=== PATIENT | female | born 1970 | race Caucasian/White ===

== ENCOUNTER 2024-03-31 10:19 | Outpatient (RCR) | payer OTHER, SELFPAY | END 2024-03-31 23:59 | disposition home or self-care (01) | LOC: RPT 10:19 | PROVIDERS: ATTENDING PHYSICIAN Orthopaedic Surgery; FAMILY PHYSICIAN Physician Assistant Medical | DX: M43.22 Fusion of spine, cervical region (principal); Z73.6 Limitation of activities due to disability; Z98.1 Arthrodesis status | CPT/HCPCS: 97110; 97161 ==

== ENCOUNTER → 2024-06-17 07:48 | Outpatient (REF) | payer OTHER, SELFPAY | LOC: WDC 07:48 | PROVIDERS: ATTENDING PHYSICIAN Nurse Practitioner Adult Health | DX: Z12.31 Encounter for screening mammogram for malignant neoplasm of breast (principal) | CPT/HCPCS: 77063; 77067 ==

== ENCOUNTER 2024-08-18 02:07 | Emergency (ER) | payer OTHER, SELFPAY ==
[2024-08-18 02:11] VITALS: BP 152/86
[2024-08-18 02:40] LABS: Hematocrit 43.7 % (37.0-47.0); Hemoglobin 15.3 g/dL (12.0-16.0); Mean Corpuscular Hgb 30.6 pg (27.0-31.0); Mean Corpuscular Volume 87.4 fL (81.0-99.0); Platelet Count 195 10^3/uL (130-400); Red Cell Dist. Width 13.6 % (11.5-14.5); White Blood Cell Count 13.3 10^3/uL (4.8-10.8)
[2024-08-18 03:00] LABS: Blood Urea Nitrogen 21 mg/dl (7-17); Calcium 9.2 mg/dl (8.4-10.2); Carbon Dioxide 19 mmol/L (22-30); Chloride 103 mmol/L (98-107); Glucose 123 mg/dl (70-99); Potassium 3.8 mmol/L (3.5-5.1); Sodium 136 mmol/L (135-145); eGFR > 60.00
[2024-08-18 04:23] VITALS: BMI 25.2
[2024-08-18 04:24] VITALS: BP 126/75
[2024-08-18 05:00] VITALS: BP 103/68
[2024-08-18 06:00] VITALS: BP 120/68
--- NOTE | 2024-08-18 06:05 | ED.GENMED ---
History of Present Illness
General
Chief Complaint: Abdominal Symptoms
Source: patient
Time Seen by Provider: 08/18/24 05:56
History of Present Illness
History of Present Illness:
This patient is a 54-year-old female presents emergency department with complaints of slight nausea that started after eating dinner followed by repeated episodes of nonbloody vomiting starting at 10 PM and lasting over 4 hours. With this, she
noted total body aches generalized weakness and feeling like 'everything hurts'. Since arrival, patient states that her symptoms have 'calm down', she is no longer vomiting and she is getting waves of nausea. She feels very thirsty and was able to
tolerate some water in the waiting room. She denies associated diarrhea, fever, chills, chest pain, shortness of breath, back pain, urinary symptoms. She said her abdomen is not painful, but rather she feels very nauseous. No sick contacts, no
potentially contaminated food.
Past History
Past History
ED Past Medical History: None
ED Past Surgical History: Gynecological (Hysterectomy, right oophorectomy) and Orthopedic
Social History
Tobacco: Non-smoker
Alcohol: Occasional
Drug: None
Personal:
Living: with family
Employment: Employed
Family History
Family History: Negative Early CAD
Phy Exam
Physical Exam
Physical Exam:
GENERAL: Alert , in no apparent distress
EYE: pupils equal and reactive
NECK: Supple, no significant adenopathy.
ENT: o/p clr, mm dry
CARDIAC: Regular rate and rhythm .
LUNGS: Clear breath sounds bilaterally, no acute respiratory distress, no wheezes/rales/rhonchi
ABDOMEN: Soft, without focal tenderness, no r/g, no cvat
NEUROLOGICAL: Alert and oriented, no focal neuro deficits
SKIN: Warm and dry, skin intact.
MUSCULOSKELETAL: No edema, well perfused.
PSYCH: Normal and appropriate interaction.
Course
Orders/Labs/Results
Orders:
Orders
08/18/24 02:24
BMP [Basic Metabolic Panel] Urgent
Complete Blood Count/No Diff Urgent
08/18/24 06:05
Ondansetron Injectable [Zofran] 4 mg IV NOW STA
Abnormal Lab Results
08/18/24
02:24
WBC 13.3 H 10^3/uL
(4.8-10.8)
MPV 11.0 H fL
(7.4-10.4)
Carbon Dioxide 19 L mmol/L
(22-30)
BUN 21 H mg/dl
(7-17)
Glucose 123 H mg/dl
(70-99)
08/18/24 02:24
08/18/24 02:24
Vital Signs
Initial and Last Documented VS:
Initial Vital Signs
Temp Pulse Resp BP Pulse Ox
98.7 F 102 22 152/86 98
08/18/24 02:11 08/18/24 02:11 08/18/24 02:11 08/18/24 02:11 08/18/24 02:11
Last Documented Vital Signs
Temp Pulse Resp BP Pulse Ox
98.7 F 102 22 105/63 95
08/18/24 02:11 08/18/24 02:11 08/18/24 02:11 08/18/24 07:14 08/18/24 07:30
*Critical Care Note
Total Time (30-74mins, 75-104mins- exclusive of procedures): Not Applicable
Update Note
Update Note:
Patient presents to the Emergency Department with ___Nausea vomiting weakness
Number and Complexity of Problems Addressed at the Encounter
� Chronic conditions affecting care:
� Acute Exacerbation and/or Progression of Chronic Illness:
� Differential Diagnosis includes: But not limited to gastroenteritis, norovirus, bowel obstruction, dehydration, appendicitis, etc. etc.
Amount and/or Complexity of Data to be Reviewed and Analyzed
� I performed an independent evaluation of and my interpretation is:
EKG:
CT:
Xrays:
Laboratory Studies: Mild leukocytosis, prerenal azotemia
Other:
� Review of other/old records reveals:
� Clinical information was obtained by an independent historian:
� Prescriptions/Medications Considered but not given:
� Further testing considered but not performed:
Risk of Complications and/or Morbidity or Mortality of Patient Management
� Social determinants of health affecting care:
� Discussion with other providers (PCP, Hospitalists, Consultants, etc):
� Escalation of care including admission/observation vs risk of discharge considered: 7:39 AM patient smiling, states she feels so much better, would like to go home, drink water here, no pain or nausea. Discussed with patient
importance of follow-up and reasons to return to the ER.
ED Attending Note
-
Portions of this chart may have been created with voice recognition software.� Occasional wrong word or��sound alike� substitutions may have occurred due to the inherent limitations of voice recognition software.
Discharge Plan
Departure
Patient Disposition: Home (Routine Discharge)
Date of Disposition: 08/18/24
Time of Disposition: 07:40
Patient with high blood pressure during this ER visit?: Yes
Condition: Good
Discharge Problem:
Vomiting
Instructions: BLOOD PRESSURE, Acute Nausea and Vomiting
Prescriptions:
New
ondansetron HCl 4 mg tablet
4 mg PO Q8H 1 Days Qty: 3 0RF
No Action
ibuprofen 600 MG tablet
600 mg PO Q6HPRN PRN (Reason: pain) Qty: 20 0RF
Referrals:
Denae Tao PA-C [Family Provider] - Next open appointment
Activity Restrictions/Additional Instructions:
IF YOU DEVELOP ABDOMINAL PAIN, FEVER, REPEATED VOMITING, DIZZINESS, CHEST PAIN, OR OTHER COMPLAINTS, PLEASE RETURN TO THE ER IMMEDIATELY.
Interventions
Interventions:
*Risk Screen - Suicide Last Done: 08/18/24 02:08
*General Assessment Last Done: 08/18/24 04:23
*Neglect/Abuse Screening Last Done: 08/18/24 02:08
*ED COVID-19 Vaccine History Last Done: 08/18/24 04:23
JW-Dlqtaf-Zxfiqvszyb Assessment Last Done: 08/18/24 04:23
ED- Cardiac Assessment Last Done: 08/18/24 04:23
ED- Neurological Assessment Last Done: 08/18/24 04:23
ED- Pulmonary Assessment Last Done: 08/18/24 04:23
Discharge Date and Time
Print Language: MOROCCAN
[2024-08-18] MEDS: ZOFRAN 4 MG IV (06:07)
[2024-08-18 07:14] VITALS: BP 105/63
== END 2024-08-18 07:56 | disposition home or self-care (01) ==
LOC: EMR 02:07
PROVIDERS: Emergency Medicine; EMERGENCY PHYSICIAN Emergency Medicine; FAMILY PHYSICIAN Physician Assistant Medical
DX: R11.2 Nausea with vomiting, unspecified (principal); Z90.710 Acquired absence of both cervix and uterus; Z90.721 Acquired absence of ovaries, unilateral
CPT/HCPCS: 96374; 99284; 80048; 85027

== ENCOUNTER → 2025-06-18 07:23 | Outpatient (REF) | payer OTHER, SELFPAY | LOC: WDC 07:23 | PROVIDERS: ATTENDING PHYSICIAN Nurse Practitioner Adult Health; FAMILY PHYSICIAN Physician Assistant Medical | DX: Z12.31 Encounter for screening mammogram for malignant neoplasm of breast (principal) | CPT/HCPCS: 77063; 77067 ==